=== PATIENT | male | born 2000 | race Caucasian/White ===

== ENCOUNTER 2025-02-07 13:14 | Emergency (ER) | payer SELFPAY ==
[~2025-02-07] VITALS: Ht 172.7 cm; Wt 70.5 kg
[2025-02-07 13:16] VITALS: BP 115/79; PULSE 75; RESP 16; O2SAT 98
[2025-02-07 15:24] VITALS: TEMP 98
== END 2025-02-07 15:28 | disposition home or self-care (01) ==
LOC: ER 13:15
DX: S61.011A Laceration without foreign body of right thumb without damage to nail, initial encounter (principal); W23.0XXA Caught, crushed, jammed, or pinched between moving objects, initial encounter; Y93.89 Activity, other specified; Y92.89 Other specified places as the place of occurrence of the external cause; Y99.8 Other external cause status
CPT/HCPCS: 73140; 99283; A6258; A6449